=== PATIENT | female | born 1970 | race Caucasian/White ===

== ENCOUNTER 2017-07-15 09:24 | Day surgery (SDC) | payer BC, SELFPAY ==
[2017-07-15] VITALS (8 sets, daily range): BP systolic 109–170; BP diastolic 68–95; PULSE 66–99; RESP 16–18; TEMP 36.4–36.8; O2SAT 93–97; BMI 33.4
[2017-07-15] MEDS: Ketorolac 60 MG/2 ML Vial IM (07:00)
[2017-07-15 09:42] LABS: Internal QC Validated? YES +Cl - CLEAR BKGD; Pregnancy, Urine Negative Negative
[2017-07-15 09:57] LABS: Hematocrit 40.9 % (37-47); Hemoglobin 13.9 g/dl (12.0-15.0); Mean Corpuscular Hgb 29.7 pg (27.0-32.0); Mean Corpuscular Volume 87.4 fL (81-99); Platelet Count 242 K/mm3 (150-450); RBC Distribution Width SD 41.5 fl (35.1-43.9); Red Blood Count 4.68 M/mm3 (4.2-5.4); White Blood Count 5.9 K/mm3 (4.4-11.0)
[2017-07-15 09:59] LABS: Scan Indicated on CBC? Y/N NO
[2017-07-15 10:16] LABS: Thyroid Stim Hormone (TSH) 1.15 uIU/mL (0.358-3.74)
[2017-07-15] MEDS: Acetaminophen 500 MG Tablet 1000 MG PO (10:41)
--- NOTE | 2017-07-15 11:00 | OV_PTH ---
PATIENT: EROS MORIN LOC: [facility] U#:[id number] AGE/SX: 46/F ROOM: RE07/15/[address]: Dr. Silvia Davis MD : [id number] BED: DIS: 07/15/2017 SPEC #: [id number] RECD: 07/15/17 15:40 STATUS: FRANCIA BONNY #: [id number] MANJINDER: 07/15/17 11:[address]: Silvia Davis DEPT: SURGICAL PATHOLOGY RECD BY: Lisa Shaffer ENTERED: 07/16/17 09:44 SP TYPE: OVARY OTHR DR: Dr. Danita Chavez MD Tissues: Left ovary Procedures: Surgery Specimen Level II Surgery Specimen Level IV HEADER OPERATION: Laparoscopic salpingectomy bilateral/laparoscopic oophorectomy PRE-OP DIAGNOSIS: Left lower quadrant pain TISSUE SUBMITTED: Bilateral fallopian tubes, left ovary MICROSCOPIC DIAGNOSIS Right and left fallopian tubes, salpingectomies: Two complete segments of fallopian tubes with no pathologic change. Left ovary, oophorectomy: Benign serous cystadenoma. Corpus luteal cysts and corpora albicantia. AM:ethan 07/19/17 COMMENT Case has been reviewed in consultation with Dr. Haro who concurs with the above diagnosis. IDC:EJ MICROSCOPIC DESCRIPTION Slides are reviewed. GROSS DESCRIPTION Received in fixative is one container labeled with the patient's name and designated bilateral fallopian tubes, left ovary. The specimen consists of fallopian tube and adjacent ovary identified as left and separate second fallopian tube identified as right. The right fallopian tube measures 5.5 cm in length and 0.5 cm in diameter. The fimbrial end is identified. Sections reveal unremarkable cut surfaces. The left fallopian tube measures 5 cm in length and 0.5 cm in diameter. It is similar appearance to right. No tubo-ovarian adhesions are noted. The left ovary measures 2.5 x 2 x 1 cm. Sections reveal two cysts filled with brownish fluid measuring 1 and 1.4 cm in greatest dimension. Motor Teacher sections are submitted as follows: 1 ? right fallopian tube, 2 ? left fallopian tube, 3 & 4 ? entire left ovary. / EJ:ethan 07/16/17 TC: 5 CPT: 97300 x2, 41016
--- NOTE | 2017-07-15 12:13 | PCM.DC.TUB ---
Discharge Diet: No Restrictions - Increase fluid intake for the next 48 hours. Discharge Activity: Return to Normal Activity, May Drive - when you are no longer taking pain/narcotic meds., May Shower, May Take a Tub Bath - in 7 days Additional Activity Instructions:: Ambulate often the next week after surgery. Nothing in the vagina for 5 days. Call your doctor if your incision/area has: Continuous Slow Oozing, Sudden Increased Bleeding, Increased Pain/ Swelling, Increased Redness, Foul Smelling Discharge Call your doctor if you observe: Fever of 101 or Higher Allergies/Adverse Reactions: Allergies No Known Allergies Allergy (Verified 07/08/17 13:23) Medications to take at Discharge Citalopram Hydrobromide [Celexa] 20 mg PO DAILY 07/08/17 Ibuprofen [Motrin] 600 mg PO Q6H PRN #60 tab 07/15/17 Oxycodone HCl/Acetaminophen [Percocet 5/325] 1 - 2 tablet PO Q8 PRN 5 Days #14 tablet 07/15/17 The following prescriptions were given: Oxycodone HCl/Acetaminophen [Percocet 5/325] 1 - 2 tablet PO Q8 PRN 5 Days #14 tablet PRN Reason: Pain Ibuprofen [Motrin] 600 mg PO Q6H PRN #60 tab PRN Reason: Pain Primary Care Physician: Danita Chavez MD [Primary Care Provider] - Please Follow Up With: Silvia Davis MD - [phone] When: 1-2 weeks or as needed
[2017-07-15] MEDS: Bupivacaine 0.25% 30 ML Vial (12:15)
--- NOTE | 2017-07-15 12:36 | PCM.OPRPT ---
Report of Operation Date of Procedure: 07/15/17 Pre-Operative Diagnosis: Left lower quadrant pain, sterilization request Post-Operative Diagnosis: same + vericosities of the pelvis Surgery/Procedure Performed:: Laparoscopic left salpingo-oophorectomy and right salpingectomy Description of Surgical Findings:: Normal-appearing uterus and tubes. Normal-appearing ovaries bilaterally. Enlarged varicose veins of the left infundibulopelvic ligament and left uterine vein area some varicosities on the right but more prominent on the left glaucoma specialist: Antonina Lambert glaucoma specialist: sasha bazzi Type of Anesthesia:: General Special Medications: none Specimen's removed: Bilateral tubes and left ovary Drains: none Estimated Blood Loss (mL): 10 cc Fluids Replaced: 1000cc lactated Ringer Description of Procedure: The patient was taken to the operating room where she was prepped and draped in the dorsolithotomy position. A weighted speculum was placed in the vagina and the anterior lip of the cervix was grasped with a tenaculum. The JiaThis uterine manipulator was placed and the remainder of the instruments were removed from the vagina. Attention was turned to the abdomen. All port sites were infiltrated with 0.5% Marcaine before skin incisions were made. A 5 mm intraumbilical incision was made. The anterior abdominal wall was tented up with 2 towel clamps while a 5 mm blade less trocar and sleeve were directly inserted. Intraperitoneal placement was confirmed with the laparoscope. The pneumoperitoneum was created and the underlying abdominal contents were intact. The patient was placed in Trendelenburg. Right and left lower quadrant ports were placed under direct visualization lateral to the inferior epigastric vessels. The bowel was swept away and the above findings were noted. The LigaSure device was used to clamp seal and transect the antimesenteric portions of the right tube to the cornual insertion of the uterus. The tube was amputated from the uterus and the pedicles were all confirmed to be hemostatic. The left infundibulopelvic ligament was clamped sealed and transected with the LigaSure device and the utero-ovarian ligament was clamped sealed and transected with the LigaSure device. The local port site was stretched with a Marianne clamp and the Endo Catch bag placed into the peritoneal cavity. The specimens were placed in the bag and brought out through the umbilical incision. The fascia of the umbilical incision was reapproximated with an 0 Vicryl suture. the pedicles were again examined and found to be hemostatic. The lateral ports were removed after the pneumoperitoneum was released. The skin incisions were closed with Monocryl suture in a subcuticular fashion and skin glue . The vaginal instruments were removed and the vaginal sweep was completed by me. The procedure was performed by me with assistance other than as dictated above. All sponge and needle counts were correct and the patient was taken to the recovery room in stable condition. Grafts/Implants Used: None - Complications None - Admit VTE Documentation VTE Present on Admission: No VTE Mechan Device Prophylaxis: SCD's VTE Pharm Prophylaxis ordered?: No Reason prophylaxis not ordered:: Procedure Not Indicated
--- NOTE | 2017-07-15 12:43 | OP.PCM_ITS ---
Report of Operation Date of Procedure: 07/15/17 Pre-Operative Diagnosis: Left lower quadrant pain, sterilization request Post-Operative Diagnosis: same + vericosities of the pelvis Surgery/Procedure Performed:: Laparoscopic left salpingo-oophorectomy and right salpingectomy Description of Surgical Findings:: Normal-appearing uterus and tubes. Normal-appearing ovaries bilaterally. Enlarged varicose veins of the left infundibulopelvic ligament and left uterine vein area some varicosities on the right but more prominent on the left crewman main battle tank: Antonina Lambert crewman main battle tank: sasha bazzi Type of Anesthesia:: General Special Medications: none Specimen's removed: Bilateral tubes and left ovary Drains: none Estimated Blood Loss (mL): 10 cc Fluids Replaced: 1000cc lactated Ringer Description of Procedure: The patient was taken to the operating room where she was prepped and draped in the dorsolithotomy position. A weighted speculum was placed in the vagina and the anterior lip of the cervix was grasped with a tenaculum. The RuffaloCODY uterine manipulator was placed and the remainder of the instruments were removed from the vagina. Attention was turned to the abdomen. All port sites were infiltrated with 0.5% Marcaine before skin incisions were made. A 5 mm intraumbilical incision was made. The anterior abdominal wall was tented up with 2 towel clamps while a 5 mm blade less trocar and sleeve were directly inserted. Intraperitoneal placement was confirmed with the laparoscope. The pneumoperitoneum was created and the underlying abdominal contents were intact. The patient was placed in Trendelenburg. Right and left lower quadrant ports were placed under direct visualization lateral to the inferior epigastric vessels. The bowel was swept away and the above findings were noted. The LigaSure device was used to clamp seal and transect the antimesenteric portions of the right tube to the cornual insertion of the uterus. The tube was amputated from the uterus and the pedicles were all confirmed to be hemostatic. The left infundibulopelvic ligament was clamped sealed and transected with the LigaSure device and the utero-ovarian ligament was clamped sealed and transected with the LigaSure device. The local port site was stretched with a Marianne clamp and the Endo Catch bag placed into the peritoneal cavity. The specimens were placed in the bag and brought out through the umbilical incision. The fascia of the umbilical incision was reapproximated with an 0 Vicryl suture. the pedicles were again examined and found to be hemostatic. The lateral ports were removed after the pneumoperitoneum was released. The skin incisions were closed with Monocryl suture in a subcuticular fashion and skin glue . The vaginal instruments were removed and the vaginal sweep was completed by me. The procedure was performed by me with assistance other than as dictated above. All sponge and needle counts were correct and the patient was taken to the recovery room in stable condition. Grafts/Implants Used: None - Complications None - Admit VTE Documentation VTE Present on Admission: No VTE Mechan Device Prophylaxis: SCD's VTE Pharm Prophylaxis ordered?: No Reason prophylaxis not ordered:: Procedure Not Indicated
== END 2017-07-15 15:47 | disposition home or self-care (01) ==
LOC: SDC 09:26 → AC 09:26
PROVIDERS: Anesthesiology; Family Provider Internal Medicine; PCP Internal Medicine; Visit Provider Obstetrics & Gynecology
PROC: (CPT 58661; principal; 2017-07-15 10:45)
DX: Z30.2 Encounter for sterilization (principal); R10.32 Left lower quadrant pain; I86.2 Pelvic varices; D27.1 Benign neoplasm of left ovary; N83.12 Corpus luteum cyst of left ovary; I44.7 Left bundle-branch block, unspecified; I49.3 Ventricular premature depolarization; I10 Essential (primary) hypertension; Z87.891 Personal history of nicotine dependence; E03.9 Hypothyroidism, unspecified; F32.9 Major depressive disorder, single episode, unspecified; F34.1 Dysthymic disorder
CPT/HCPCS: 00840; 58661; 81025; 84443; 85027; 86850; 86900; 88302; 88305; J7120; J2405

== ENCOUNTER → 2019-01-19 10:55 | Outpatient (CLI) | payer BC, SELFPAY ==
--- NOTE | 2019-01-19 10:59 | BI_ITS ---
MAMMOGRAPHY - BILATERAL SCREENING REASON FOR EXAM: Female, 48 years old. Routine annual screening examination. PERTINENT HISTORY: Non-contributory. Occasional right breast discharge. TECHNIQUE: Digital bilateral breast maryann (3D mammographic acquisition) in the CC and MLO projections. 2-D mediolateral oblique (MLO) and craniocaudad (CC) views of both breasts were obtained. CAD: Full Field Digital Mammography with Computer Added Detection was performed. COMPARISON: Comparison is made with prior examination dated April 15, 2017. FINDINGS: Breast Composition: There are scattered areas of fibroglandular density. There are no dominant masses or suspicious calcifications. Stable small benign-appearing bilateral axillary lymph nodes. No other significant abnormalities are identified. There has been no significant change since the prior study. BI/SCREEN MAMM (CAD) W/MARYANN BILAT IMPRESSION: Stable bilateral screening mammogram. Yearly follow-up mammogram recommended. (A) ASSESSMENT CATEGORY: BIRADS Category 2: Benign. A letter regarding these results will be sent to the patient by the facility within 30 days. Approximately 10% of breast cancers are not detected by mammography. A normal mammogram should not delay biopsy of a clinically suspicious abnormality. [id number] Electronically Signed: Omar Ascencio, at 12:51 EDT , Service support ,
== END ==
PROVIDERS: Family Provider Internal Medicine; PCP Internal Medicine; Referring Provider Obstetrics & Gynecology; Visit Provider Obstetrics & Gynecology
DX: Z12.31 Encounter for screening mammogram for malignant neoplasm of breast (principal)
CPT/HCPCS: 77063; 77067

== ENCOUNTER 2019-04-01 20:20 | Emergency (ER) | payer BC, SELFPAY ==
[2019-04-01 20:21] VITALS: BP 160/103; PULSE 115; RESP 24; TEMP 36.8; BMI 32.5
--- NOTE | 2019-04-01 20:33 | EKG12_ITS ---
Test Reason : CP Blood Pressure : / mmHG Vent. Rate : 115 BPM Atrial Rate : 115 BPM P-R Int : 160 ms QRS Dur : 142 ms QT Int : 366 ms P-R-T Axes : 056 005 064 degrees QTc Int : 506 ms Sinus tachycardia Left bundle branch block Abnormal ECG Confirmed by YU GONCALVES MD ([id number]), editor greeting card ALEXANDER MAHAJAN ([id number]) on 04/04/2019 11:38:28 AM Referred By: BB Confirmed By:YU GONCALVES MD
--- NOTE | 2019-04-01 20:33 | RAD_ITS ---
STUDY: X-RAY CHEST REASON FOR EXAM: Female, 48 years old. Left-sided chest pain TECHNIQUE: Single frontal view of the chest. COMPARISON: October 15, 2016 FINDINGS: Calcified granuloma right lower lobe. The lungs are clear and expanded. There is no demonstrated pleural abnormality. Normal size heart. Normal mediastinum and geovany. Normal visualized pulmonary arteries. Normal visualized aortic arch and descending thoracic aorta. Normal visualized thoracic spine. Normal visualized ribs, clavicles, and shoulders. There is no demonstrated abnormality of the visualized soft tissue structures of the upper abdomen. RAD/Chest 1 View (Portable) IMPRESSION: No acute disease Electronically Signed: Darryn Lockhart MD at 21:33 EST , Service support ,
--- NOTE | 2019-04-01 20:34 | ED.DCSUM_ITS ---
History of Present Illness Chief Complaint: Chest Pain Informant: Patient Onset: Today - since 2-3 pm, around 4 hrs Activity at onset: Rest - relatively sudden onset Timing: Continuous Quality: Burning, Tightness Location: Left Parasternal - w/ radiation into LUE Current Severity: Moderate Maximum Severity: Moderate Worsened By: Breathing - a little Relieved By: Nothing Associated Symptoms: Dyspnea - mild, Palpitations - racing. Negative for: Nausea, Vomiting, Diaphoresis, Cough, Fever, Lightheadedness Narrative: Patient states she has had symptoms similar to this before, with a history of a left bundle branch block and PVCs for unknown reasons for which she was placed on propranolol, she has been on it several weeks now and taking it consistently at night once a day, she has not yet had it tonight, but the symptoms have been persistent all evening which is unusual. She had a nuclear stress test, treadmill stress test, and echocardiogram, she does not know the results of all this yet and is due to follow-up with her roller man in [place]. No recent long travel, no history of DVT or PE, does not take any antiplatelet or anticoagulant medications. No recent hospitalization or illness or [id number] medications or illicit substances. - Past Medical History (1) Left bundle branch block Status: Chronic (2) PVCs (premature ventricular contractions) Status: Chronic Past Medical History - Allergies and Home Meds Allergies/Adverse Reactions: Allergies No Known Allergies Allergy (Verified 04/01/19 20:26) Doctors: Dr. Gonzales, cardiology Smoking Status: Current every day smoker Drugs: None Review of Systems General: Reports: Malaise. Denies: Chills, Fever, Sweats Eyes: Denies: Visual changes - bilaterally, Diplopia ENT: Denies: Rhinorrhea, Sore throat Cardiovascular: Reports: Chest pain, Palpitations, Heart racing Respiratory: Reports: Dyspnea. Denies: Cough, Dyspnea on exertion, Orthopnea Gastrointestinal: Denies: Abdominal pain, Nausea, Vomiting, Diarrhea, Melena, Hematochezia Genitourinary: Denies: Dysuria, Hematuria, Frequency Musculoskeletal: Denies: Back pain, Swelling, Extremity Pain Skin: Denies: Rash, Wounds Neurological: Denies: Headache, Weakness, Numbness Physical Exam Vital Signs/Narrative: Vital Signs Temp Pulse Resp BP 04/01/19 20:21 98.3 F 115 H 24 H 160/103 H Inital Vital Signs reviewed: Yes General: Well nourished, Well developed, No Acute Distress Head: Normocephalic, Atraumatic Eyes: Perrl, EOMI ENT: Moist mucous membranes, No rhinorrhea Neck: Supple, Nontender, No JVD Cardiovascular: Regular rate, Regular rhythm, Tachycardia Respiratory: No distress, CTA bilaterally, Chest nontender, - - No splinting on deep inspiration Abdomen: Soft, Nontender, Nondistended, Normal bowel sounds Back: Nontender, Normal Inspection Extremities: Nontender, No edema. Negative for: Calf Tenderness Skin: Normal color, No rash, No Trauma Neurological: Alert, Oriented x3, Cranial nerves II-XII grossly intact, Normal Strength, Normal Sensation Psychological: Normal affect, Normal Mood Diagnostic/Tx/Re-eval Impressions Chest X-Ray 04/01/19 20:33 IMPRESSION: No acute disease Electronically Signed: Darryn Lockhart MD at 21:33 EST , Service support , 04/01/19 20:33 Chest 1 View (Portable) [RAD] Stat Laboratory Tests 04/01/19 04/01/19 04/01/19 Range/Units 22:20 20:27 20:27 WBC (4.4-11.0) K/mm3 RBC (4.2-5.4) M/mm3 Hgb (12.0-15.0) g/dL Hct (37-47) % MCV (81-99) fL MCH (27.0-32.0) pg MCHC (32-36) g/dL RDW Std Deviation (35.1-43.9) fl RDW Coeff of Grover (11.6-14.6) % Plt Count (150-450) K/mm3 MPV (6.2-12.0) fl Immature Gran % (Auto) (0.0-0.9) % Neut % (Auto) (47-70) % Lymph % (Auto) (19-41) % Brook[place] % (Auto) (0-10) % Eos % (Auto) (0-5) % Baso % (Auto) (0-1) % Absolute Neuts (auto) (2.0-7.7) X10^3/uL Absolute Lymphs (auto) (0.83-4.51) X10^3/uL Nucleated RBC % (0-5) % D-Dimer Quant (PE/DVT) 0.40 (0.27-0.49) FEU/ug/m Sodium 143 (136-145) mmol/L Potassium 3.5 (3.5-5.1) mmol/L Chloride 109 H (98-107) mmol/L Carbon Dioxide 27.0 (21.0-32.0) mmol/L Anion Gap 7 (5-15) BUN 14 (7-18) mg/dL Creatinine 1.17 H (0.55-1.02) mg/dL Estim Creat Clear Calc 53.85 ml/min Est GFR (MDRD) Af Amer 63 (>60) mL/min Est GFR (MDRD) Non-Af 52 L (>60) mL/min BUN/Creatinine Ratio 12.0 (10-20) RATIO Glucose 132 H (74-106) mg/dL Calcium 9.4 (8.5-10.1) mg/dL Troponin I < 0.015 < 0.015 (<0.045) ng/mL 04/01/19 Range/Units 20:27 WBC 7.6 (4.4-11.0) K/mm3 RBC 5.03 (4.2-5.4) M/mm3 Hgb 14.6 (12.0-15.0) g/dL Hct 44.1 (37-47) % MCV 87.7 (81-99) fL MCH 29.0 (27.0-32.0) pg MCHC 33.1 (32-36) g/dL RDW Std Deviation 40.6 (35.1-43.9) fl RDW Coeff of Grover 12.6 (11.6-14.6) % Plt Count 258 (150-450) K/mm3 MPV 10.4 (6.2-12.0) fl Immature Gran % (Auto) 0.400 (0.0-0.9) % Neut % (Auto) 59.4 (47-70) % Lymph % (Auto) 28.0 (19-41) % Brook[place] % (Auto) 10.6 H (0-10) % Eos % (Auto) 0.9 (0-5) % Baso % (Auto) 0.7 (0-1) % Absolute Neuts (auto) 4.5 (2.0-7.7) X10^3/uL Absolute Lymphs (auto) 2.14 (0.83-4.51) X10^3/uL Nucleated RBC % 0 (0-5) % D-Dimer Quant (PE/DVT) (0.27-0.49) FEU/ug/m Sodium (136-145) mmol/L Potassium (3.5-5.1) mmol/L Chloride (98-107) mmol/L Carbon Dioxide (21.0-32.0) mmol/L Anion Gap (5-15) BUN (7-18) mg/dL Creatinine (0.55-1.02) mg/dL Estim Creat Clear Calc ml/min Est GFR (MDRD) Af Amer (>60) mL/min Est GFR (MDRD) Non-Af (>60) mL/min BUN/Creatinine Ratio (10-20) RATIO Glucose (74-106) mg/dL Calcium (8.5-10.1) mg/dL Troponin I (<0.045) ng/mL - Rhythm Strip Rhythm Strip: Sinus Tach Rate: 115 Ectopy: None - EKG Initial EKG Interpretation: No Acute Injury Pattern, Sinus Tachycardia, LBBB Prior: Unchanged Treatment: Beta Jerald IV Repeat Eval: Pain Free - Medical Decision Making Patient was given IV metoprolol 5 mg, which slowed her down to the 80s, she remained there. Rhythm remained unchanged, sinus. Her symptoms resolved as a result. Her troponin came back negative, as did the rest of her work-up. Differential includes sinus tachycardia, ectopic atrial tachycardia. I think the most reasonable course here, given her relatively low risk, is to perform delta troponin 3 hours after the initial and if negative, have the patient be discharged home to take her propranolol and follow-up with her roller man in [place] as an outpatient. I discussed this with her she is comfortable with this plan. Repeat the troponin was performed, it was less than 3 hours after the initial, however the second troponin was performed later than 6 hours after the onset of symptoms. Therefore I think it is adequate and sufficient, it is negative. I am comfortable letting her go home and follow-up, with the plan as above. ED Disposition - Plan for ED Patient: Disposition: Home or Assisted Living Diagnosis: Chest pain, unspecified, Tachycardia Instructions: CHEST PAIN, Uncertain Cause, Palpitations Referrals: Dr. eloina [Other] (call for follow up appt, if you do not already have one within next 1-2 weeks) Additional Instructions: Go ahead and take your nightly propranolol when you get home tonight. It is longer acting than the medication we gave you.
[2019-04-01 20:48] LABS: Absolute Lymphocyte Count 2.14 X10^3/uL (0.83-4.51); Absolute Neutrophil Count 4.5 X10^3/uL (2.0-7.7); Basophil# 0.05 X10^3/uL; Basophil% 0.7 % (0-1); Eosinophil# 0.07 X10^3/uL; Eosinophils% 0.9 % (0-5); Hematocrit 44.1 % (37-47); Hemoglobin 14.6 g/dL (12.0-15.0); Lymphocyte # 2.14 X10^3/ul (4.0); Mean Corp Hgb Conc 33.1 g/dL (32-36); Mean Corpuscular Volume 87.7 fL (81-99); Mean Platelet Vol. 10.4 fl (6.2-12.0); Monocyte# 0.81 X10^3/uL; Monocyte% 10.6 % (0-10); NRBC Flagged by Analyzer 0 % (0-5); Neutrophil # 4.53 X10^3/uL (2.7-7.7); Neutrophil % 59.4 % (47-70); Platelet Count 258 K/mm3 (150-450); RBC Distribution Width CV 12.6 % (11.6-14.6); RBC Distribution Width SD 40.6 fl (35.1-43.9); Red Blood Count 5.03 M/mm3 (4.2-5.4); White Blood Count 7.6 K/mm3 (4.4-11.0)
[2019-04-01 20:52] VITALS: BP 157/92; PULSE 103; RESP 26; O2SAT 96
[2019-04-01] MEDS: 0.9% Normal Saline 1,000 ML 150 ML IV (20:52)
[2019-04-01] MEDS: Metoprolol Tartrate 5 MG/5 ML Vial IV (20:53)
[2019-04-01 21:04] LABS: Anion Gap 7 (5-15); BUN 14 mg/dL (7-18); Calcium,Total 9.4 mg/dL (8.5-10.1); Chloride 109 mmol/L (98-107); Creatinine, Serum 1.17 mg/dL (0.55-1.02); EST Glomerular Filtration Rate 52 mL/min (>60); Est Glom Filt Rate - Afr Amer 63 mL/min (>60); Estimated Creatinine Clearance 53.85 ml/min; Glucose 132 mg/dL (74-106); Potassium 3.5 mmol/L (3.5-5.1); Sodium Level 143 mmol/L (136-145)
[2019-04-01 21:16] VITALS: BP 131/89; PULSE 80; RESP 16; O2SAT 97
[2019-04-01 22:15] VITALS: BP 128/94; PULSE 85; RESP 16; O2SAT 99
[2019-04-01 23:20] VITALS: BP 139/87; PULSE 81; RESP 16; O2SAT 99
== END 2019-04-01 23:24 | disposition home or self-care (01) ==
PROVIDERS: Emergency Provider Emergency Medicine
DX: R07.89 Other chest pain (principal); R00.0 Tachycardia, unspecified; R00.2 Palpitations; R06.00 Dyspnea, unspecified; I44.7 Left bundle-branch block, unspecified; I49.3 Ventricular premature depolarization; Z79.899 Other long term (current) drug therapy; F17.200 Nicotine dependence, unspecified, uncomplicated
CPT/HCPCS: 36415; 71045; 80048; 84484; 85025; 85379; 93005; 96360; 96361; 99283; J7030

== ENCOUNTER 2020-05-11 12:51 | Emergency (ER) | payer BC, SELFPAY ==
[2020-05-11 12:54] VITALS: BP 164/121; PULSE 129; RESP 28; TEMP 36.1; O2SAT 99; BMI 31.4
--- NOTE | 2020-05-11 13:06 | CT_ITS ---
STUDY: CT BRAIN WITHOUT CONTRAST REASON FOR EXAM: Female, 49 years old. Sudden onset headache, worse headache ever. RADIATION DOSAGE (If Supplied By Facility): CTDIvol = ( 44.99 ) mGy, DLP = ( 779.24 ) mGycm TECHNIQUE: Transaxial CT imaging of the brain was performed without administration of intravenous contrast material. Individualized dose optimization techniques were used for this CT. COMPARISON: 11/02/2016 FINDINGS: Normal soft tissue structures. Normal calvarium. Normal size ventricles and extra-axial spaces for the patient''s age. Normal white matter tracts of the cerebral hemispheres. Normal basal ganglia and thalami. Normal brainstem. Normal cerebellum. There is no intracranial hemorrhage. There are no findings of an acute ischemic infarction. Normal visualized paranasal sinuses. CT/Brain/Head without Contrast IMPRESSION: Normal unenhanced CT scan of the brain. Electronically Signed: Mirza Vázquez DO at 14:02 EST Tel , Service support ,
--- NOTE | 2020-05-11 13:06 | EKG12_ITS ---
Test Reason : BOTELLO/CP Blood Pressure : / mmHG Vent. Rate : 115 BPM Atrial Rate : 115 BPM P-R Int : 134 ms QRS Dur : 138 ms QT Int : 370 ms P-R-T Axes : 062 039 000 degrees QTc Int : 511 ms Sinus tachycardia Left bundle branch block Abnormal ECG Confirmed by PEARL HOPPER, ERIBERTO ([id number]), editor book CHRISTOPHER KUMAR ([id number]) on 05/16/2020 10:12:00 AM Referred By: DONTRELL Confirmed By:HECTOR KANG MD
--- NOTE | 2020-05-11 13:08 | ED.DCSUM_ITS ---
- ER Visit Summary Date of Service: 05/11/20 Chief Complaint: Headache History of Present Illness: The patient is a 49 F who presents with a headache that began approximate 1 hour prior to arrival. Patient was sitting on the couch watching television when her pain began. Patient states she did have a headache yesterday and took some Tylenol. Patient states the Tylenol did not help with her headache. Patient states that today her headache began suddenly and is worse. Patient states nothing makes it better or worse. Patient denies any fevers or chills. Patient admits to nausea but denies any vomiting. Patient denies any paresthesias or weakness. Patient states her pain does radiate into her jaw. Physical Examination: Vital signs are stable except for tachycardia of 129 and a tachypnea of 28. Patient is afebrile. Patient is in mild distress secondary to the pain. Oral mucosa is pink and moist. Neck is supple. Trachea is midline. There is no JVD. Heart was regular and tachycardic. Lungs are clear and equal bilaterally. Abdomen is soft. Bowel sounds are normal. There is no tenderness. Cranial nerves II through XII are intact. There are no focal motor or sensory deficits noted. Test Results: EKG was obtained. On my interpretation there is a sinus tachycardia with a rate of 115. There is a left bundle branch block pattern noted. There are no acute ST or T wave changes. This was unchanged compared to previous EKG dated 04/01/2019. CT scan of the brain was obtained. There is no acute intracranial hemorrhage or infarct. This was interpreted by the radiologist. A CTA of the head and neck was obtained. There is no aneurysm or large vessel occlusion. There is no bleeding noted. There is asymmetric decreased flow of the left transverse sinus. This was interpreted by the radiologist and reviewed by myself. CBC, comprehensive metabolic profile, troponin, PT with INR, and PTT were obtained and were all within normal limits. Emergency Department Course and Treatment: Patient was given IV fluids, Reglan, Benadryl, and morphine. Patient was feeling better on reevaluation. I discussed the option of lumbar puncture to rule out subarachnoid hemorrhage. Patient does not want to have this done at this time. Patient was advised to rest in a dark quiet room. Patient was instructed return if worse in any way. Patient understood the risks of having a lumbar puncture and not having the lumbar puncture. Patient prefers to go home at this time. Patient understood and was agreeable with the plan. All questions were answered. Disposition: Discharge home Impression: Headache This note was generated with [employer] dictation software. It may contain incorrect words, spelling, and punctuation that were not noted in review of the chart prior to signing ED Disposition - Plan for ED Patient: Disposition: Home or Assisted Living Diagnosis: Headache Instructions: ED Headache Unspecified Referrals: Care Physician,No Primary [Primary Care Provider] - 3-5 Days
[2020-05-11] MEDS: DiphenhydrAMINE 50 MG/ML Syringe 25 MG IV (13:16)
[2020-05-11] MEDS: Morphine 4 MG/ML Syringe IV (13:20)
[2020-05-11] MEDS: Metoclopramide 10 MG/2 ML Vial IV (13:20)
[2020-05-11 13:26] LABS: Absolute Lymphocyte Count 4.16 X10^3/uL (0.83-4.51); Absolute Neutrophil Count 3.3 X10^3/uL (2.0-7.7); Basophil# 0.04 X10^3/uL; Basophil% 0.5 % (0-1); Eosinophil# 0.18 X10^3/uL; Eosinophils% 2.1 % (0-5); Hematocrit 43.8 % (37-47); Hemoglobin 14.2 g/dL (12.0-15.0); Lymphocyte # 4.16 X10^3/ul (4.0); Lymphocyte % 49.2 % (19-41); Mean Corp Hgb Conc 32.4 g/dL (32-36); Mean Corpuscular Volume 89.6 fL (81-99); Mean Platelet Vol. 10.4 fl (6.2-12.0); Monocyte# 0.79 X10^3/uL; Monocyte% 9.3 % (0-10); NRBC Flagged by Analyzer 0 % (0-5); Neutrophil # 3.27 X10^3/uL (2.7-7.7); Neutrophil % 38.7 % (47-70); Platelet Count 282 K/mm3 (150-450); RBC Distribution Width CV 12.4 % (11.6-14.6); RBC Distribution Width SD 40.5 fl (35.1-43.9); Red Blood Count 4.89 M/mm3 (4.2-5.4); White Blood Count 8.5 K/mm3 (4.4-11.0)
[2020-05-11 13:40] LABS: International Normalized Ratio 0.9; Prothrombin Time (Protime)PT. 11.7 SECONDS (11.7-14.9)
[2020-05-11 13:41] LABS: Partial Thromboplast Time 27.1 Seconds (24.1-36.2)
--- NOTE | 2020-05-11 13:44 | CT_ITS ---
STUDY: CTA HEAD AND NECK WITH CONTRAST REASON FOR EXAM: Female, 49 years old. Sudden onset headache, worse headache ever. RADIATION DOSAGE (If Supplied By Facility): CTDIvol = ( 13.71 ) mGy, DLP = ( 706.54 ) mGycm TECHNIQUE: CT angiography was performed with a multi-detector CT scanner. Data acquisition was obtained from the skull base through the vertex following intravenous administration of 100mL Isovue-370. MIP images were reconstructed from the axial data set. Post-processing of the angiographic images was performed, with multiplanar reformation and 3D reconstruction. Individualized dose optimization techniques were used for this CT. COMPARISON: No relevant priors. FINDINGS: Normal bilateral petrous carotid arteries. Normal right cavernous carotid artery with a normal supraclinoid bifurcation. Normal left cavernous carotid artery with a normal supraclinoid bifurcation. Normal right A1 segments of the anterior cerebral artery. Normal left A1 segments of the anterior cerebral artery. Normal intact anterior communicating artery (ACOM). Normal bilateral A2 segments of the anterior cerebral arteries. Normal right M1 and M2 segments of the middle cerebral arteries, with a normal M1 bifurcation. Normal left M1 and M2 segments of the middle cerebral arteries, with a normal M1 bifurcation. Normal right posterior communicating artery (PCOM). Normal left posterior communicating artery (PCOM). Normal bilateral vertebral arteries. Normal basilar artery with a normal basilar bifurcation. The visualized bilateral superior cerebellar (SCA) arteries are normal. Normal bilateral P1, P2 and visualized P3 segments of the posterior cerebral arteries. There is no demonstrated aneurysm of the [place] of [place]. There is no demonstrated abnormality of the visualized brain. There is degenerative change of the visualized cervical spine. There is focal asymmetric decreased flow in the left transverse venous sinus with suggestion of thrombus versus stenosis. AORTIC ARCH: Normal visualized aortic arch. Normal origins of the brachiocephalic, left common carotid, and left subclavian arteries. RIGHT CAROTID ARTERIES: Normal right common carotid artery (CCA). Normal right common carotid bulb. Normal origin of the right internal carotid (ICA) artery without a hemodynamically significant stenosis. Normal visualized cervical portion of the right internal carotid artery. Normal origin of the right external carotid artery (ECA). LEFT CAROTID ARTERIES: Normal left common carotid artery (CCA). Normal left common carotid bulb. Normal origin of the left internal carotid (ICA) artery without a hemodynamically significant stenosis. Normal visualized cervical portion of the left internal carotid artery. Normal origin of the left external carotid artery (ECA). VERTEBRAL ARTERIES: Normal bilateral vertebral arteries. CT/CTA Head AND Neck W/ Contrast IMPRESSION: Normal CTA Head and neck with contrast. No aneurysm or large vessel occlusion. Asymmetric decreased flow in the left transverse sinus. Consider MRV for further evaluation. Electronically Signed: Celestino Boland MD at 15:48 EST , Service support ,
[2020-05-11 13:51] VITALS: BP 142/78; PULSE 89; RESP 16; O2SAT 99
[2020-05-11 14:13] LABS: ALB/GLOB Ratio 1.1 RATIO (0.9-2.4); AST(SGOT) 23 U/L (15-37); Alanine Aminotransfer ALT/SGPT 42 U/L (13-56); Albumin, Serum 4.3 g/dL (3.2-5.0); Alkaline Phosphatase 77 U/L (45-117); Anion Gap 8 (5-15); BUN 13 mg/dL (7-18); BUN/Creat Ratio 11.9 RATIO (10-20); Calcium,Total 9.3 mg/dL (8.5-10.1); Chloride 106 mmol/L (98-107); Creatinine, Serum 1.09 mg/dL (0.55-1.02); EST Glomerular Filtration Rate 56 mL/min (>60); Est Glom Filt Rate - Afr Amer 68 mL/min (>60); Estimated Creatinine Clearance 57.16 ml/min; Globulin 3.8 g/dL (2.2-4.2); Glucose 96 mg/dL (74-106); Potassium 3.6 mmol/L (3.5-5.1); Protein, Total 8.1 g/dL (6.4-8.2); Sodium Level 142 mmol/L (136-145)
[2020-05-11 14:45] VITALS: BP 132/78; PULSE 81; RESP 16; O2SAT 98
[2020-05-11 16:00] VITALS: BP 137/84; PULSE 73; RESP 16; O2SAT 98
== END 2020-05-11 17:26 | disposition home or self-care (01) ==
PROVIDERS: Emergency Provider Emergency Medicine
DX: R51.9 Headache, unspecified (principal); R11.0 Nausea; I44.7 Left bundle-branch block, unspecified; F17.200 Nicotine dependence, unspecified, uncomplicated
CPT/HCPCS: 70450; 70496; 70498; 80053; 84484; 85025; 85610; 85730; 93005; 96374; 96375; 99285; Q9967; A4216

== ENCOUNTER 2020-09-04 09:02 | Emergency (ER) | payer BC, SELFPAY ==
[2020-09-04 09:02] VITALS: BP 125/76; PULSE 96; RESP 18; TEMP 38.6; O2SAT 94; BMI 32.3
[2020-09-04 09:11] VITALS: O2SAT 94
[2020-09-04 09:12] VITALS: O2SAT 94
--- NOTE | 2020-09-04 09:15 | RAD_ITS ---
STUDY: X-RAY CHEST REASON FOR EXAM: Female, 49 years old. Increased shortness of breath. Cough. Day 8 ofCovid. TECHNIQUE: Single AP portable view of the chest. COMPARISON: Comparison is made with prior examination dated 04/01/2019. FINDINGS: EKG electrodes are seen. Patchy infiltrate is seen in the right mid lung. There is no demonstrated pleural abnormality. Normal size heart. Normal mediastinum and geovany. Normal visualized pulmonary arteries. Normal visualized aortic arch and descending thoracic aorta. Normal visualized thoracic spine. Normal visualized ribs, clavicles, and shoulders. There is no demonstrated abnormality of the visualized soft tissue structures of the upper abdomen. RAD/Chest 1 View (Portable) IMPRESSION: Patchy infiltrate is seen in the right mid lung. Stable calcified granuloma in the right lower lobe. Electronically Signed: Omar Ascencio MD at 10:20 EDT , Service support ,
--- NOTE | 2020-09-04 09:16 | EKG12_ITS ---
Test Reason : SOB Blood Pressure : / mmHG Vent. Rate : 092 BPM Atrial Rate : 092 BPM P-R Int : 174 ms QRS Dur : 140 ms QT Int : 434 ms P-R-T Axes : 056 055 -40 degrees QTc Int : 536 ms Normal sinus rhythm Left bundle branch block Abnormal ECG Confirmed by PEARL HOPPER, ERIBERTO ([id number]), editor department CHRISTOPHER KUMAR ([id number]) on 09/06/2020 8:08:58 AM Referred By: Confirmed By:HECTOR KANG MD
--- NOTE | 2020-09-04 09:19 | ED.VISSUMM ---
- ER Visit Summary Date of Service: 09/04/20 Chief Complaint: Shortness of breath History of Present Illness: The patient is a 49 F presenting with shortness of breath and cough. Patient started having Covid symptoms 8 days ago. She was tested 6 days ago and was positive. She has lost her sense of taste and smell. She has shortness of breath and nonproductive cough. She has chest pain only when she coughs. She has had fever and chills. T-max 101.8. She complains of diarrhea. She has myalgias and headache. Denies other complaints. Physical Examination: Vitals are stable. Temperature 101.4. Alert no acute distress. Pulse ox 94% on room air. HEENT exam is unremarkable. Neck is supple. No meningismus Lungs are clear and equal bilaterally. Heart is regular rate and rhythm. Abdomen is soft nontender nondistended. Extremities are unremarkable. Skin is warm and dry. No focal neurologic deficit. Remainder of exam is unremarkable. Emergency Department Course and Treatment: Patient was given IV fluids, Toradol, Tylenol. EKG is sinus rhythm rate of 92 with left bundle branch block. CBC normal except white count 3.4, platelet 133. Chemistries unremarkable. Troponin is negative. D-dimer elevated at 1.10. Chest xray read by myself and radiology shows patchy infiltrate is seen in the right mid lung. Stable calcified granuloma in the right lower lobe. Due to elevated D-dimer, CTA chest was obtained and shows patchy bilateral pulmonary infiltrates. Calcified granuloma in the anterior aspect of the right lower lobe abutting the major fissure. Delta troponin negative. Her ambulatory pulse ox is 93% on room air. Patient was given Decadron and a prescription for Decadron. She is advised to monitor her pulse ox at home. She is given Dr. Bland on-call for no doctor. Advised return to the ED for worsening complaints. Disposition: Discharge home Impression: COVID-19 This note was generated with [employer] dictation software. It may contain incorrect words, spelling, and punctuation that were not noted in review of the chart prior to signing ED Disposition - Plan for ED Patient: Instructions: Coronavirus Disease 2019 (COVID-19): Overview Prescriptions: Dexamethasone [Decadron] 6 mg PO DAILY 9 Days tablet Prescription Printed Referrals: Kapil Bland DO [NON CLINICAL AFFILIATE] -
[2020-09-04] MEDS: Ketorolac 30 MG/ML Syringe IV (09:28)
[2020-09-04] MEDS: 0.9% Normal Saline 1,000 ML 1000 ML IV (09:28)
[2020-09-04] MEDS: Acetaminophen 500 MG Tablet 1000 MG PO (09:29)
[2020-09-04 09:35] LABS: Absolute Lymphocyte Count 1.15 X10^3/uL (0.83-4.51); Absolute Neutrophil Count 1.8 X10^3/uL (2.0-7.7); Basophil# 0.01 X10^3/uL; Basophil% 0.3 % (0-1); Hematocrit 43.2 % (37-47); Hemoglobin 14.5 g/dL (12.0-15.0); Lymphocyte # 1.15 X10^3/ul (0.83-4.51); Lymphocyte % 34.3 % (19-41); Mean Corp Hgb Conc 33.6 g/dL (32-36); Mean Corpuscular Hgb 29.4 pg (27.0-32.0); Mean Corpuscular Volume 87.4 fL (81-99); Mean Platelet Vol. 10.4 fl (6.2-12.0); Monocyte# 0.39 X10^3/uL; Monocyte% 11.6 % (0-10); NRBC Flagged by Analyzer 0 % (0-5); Neutrophil # 1.79 X10^3/uL (2.7-7.7); Neutrophil % 53.5 % (47-70); Platelet Count 133 K/mm3 (150-450); RBC Distribution Width CV 12.2 % (11.6-14.6); Red Blood Count 4.94 M/mm3 (4.2-5.4); White Blood Count 3.4 K/mm3 (4.4-11.0)
[2020-09-04 09:50] LABS: Anion Gap 4 (5-15); BUN 12 mg/dL (7-18); BUN/Creat Ratio 12.1 RATIO (10-20); Calcium,Total 8.5 mg/dL (8.5-10.1); Chloride 102 mmol/L (98-107); EST Glomerular Filtration Rate 62 mL/min (>60); Est Glom Filt Rate - Afr Amer 75 mL/min (>60); Estimated Creatinine Clearance 62.31 ml/min; Glucose 113 mg/dL (74-106); Potassium 3.7 mmol/L (3.5-5.1); Sodium Level 135 mmol/L (136-145)
--- NOTE | 2020-09-04 10:55 | CT_ITS ---
STUDY: CTA CHEST REASON FOR EXAM: Female, 49 years old. Elevated d dimer RADIATION DOSAGE (If Supplied By Facility): CTDIvol = ( 9.99 ) mGy, DLP = ( 542.94 ) mGycm TECHNIQUE: The examination was performed with the intravenous administration of IV 100mL Isovue-300. Post-processing of the angiographic images was performed, with multiplanar reformation and 3D reconstruction. Individualized dose optimization techniques were used for this CT. COMPARISON: Comparison is made with prior study done earlier in the day. FINDINGS: Benign appearing bilateral axillary lymph nodes. Normal enhancement of the main pulmonary artery and right and left pulmonary arteries. Normal enhancement of the bilateral peripheral pulmonary arteries. There is no demonstrated pulmonary embolism. Normal thoracic aorta and visualized great vessels. There is no demonstrated aortic dissection. Normal heart and pericardium. There are visualized mediastinal lymph nodes, which are within normal size limits, and with normal morphology. Normal hilar regions. Normal visualized trachea and bronchi. The lungs are well expanded. There are patchy bilateral pulmonary infiltrates in both lungs upper and lower lobes in a peripheral distribution. Normal pleura. Normal chest wall structures. There are degenerative changes of thoracic spine. Small hiatal hernia. CT/CTA Chest W/WO Contrast IMPRESSION: Patchy bilateral pulmonary infiltrates. Calcified granuloma in the anterior aspect of the right lower lobe abutting the major fissure. Electronically Signed: Omar Ascencio MD at 11:27 EDT , Service support ,
[2020-09-04 11:20] VITALS: BP 117/68; PULSE 76; RESP 24; O2SAT 96
[2020-09-04 11:33] VITALS: BP 117/68; PULSE 78; RESP 21; TEMP 36.9; O2SAT 96
--- NOTE | 2020-09-04 13:18 | ED.DEP ---
ED Disposition - Plan for ED Patient: Instructions: Coronavirus Disease 2019 (COVID-19): Overview Prescriptions: Dexamethasone [Decadron] 6 mg PO DAILY 9 Days tablet Prescription Printed Referrals: Kapil Bland DO [NON CLINICAL AFFILIATE] -
[2020-09-04] MEDS: dexAMETHasone 4 MG Tablet 6 MG PO (13:39)
[2020-09-04 14:40] VITALS: BP 114/73; PULSE 74; RESP 16; O2SAT 97
== END 2020-09-04 14:48 | disposition home or self-care (01) ==
LOC: ED 09:39
PROVIDERS: Emergency Provider Emergency Medicine; PCP Nurse Practitioner Primary Care
DX: U07.1 COVID-19 (principal); I44.7 Left bundle-branch block, unspecified
CPT/HCPCS: 71045; 71275; 80048; 84484; 85025; 85379; 93005; 96361; 96374; 99285; J7030; Q9967; A4216